=== PATIENT | female | born 1985 | race Caucasian/White ===

== ENCOUNTER 2021-08-10 04:18 | Emergency (ER) | payer OTHER ==
[2021-08-10] MEDS ORDERED: Lorazepam 2 MG/ML VIAL ONE (05:02)
[2021-08-10] MEDS ORDERED: Fentanyl 100 MCG/2 ML VIAL ONE ×2 (05:03→08:57)
[2021-08-10 05:30] LABS: #Basophils 0.1 10x3/uL (0.0-0.2); #Eosinphils 0.2 10x3/uL (0.0-0.5); #Monocytes 0.4 10x3/uL (0.0-1.1); %Basophils 0.8 % (0.0-2.0); %Eosinophils 2.5 % (0.0-6.0); %Lymphocytes 38.1 % (18.0-47.0); %Monocytes 7.4 % (0.0-10.0); Hemoglobin 11.6 g/dL (12.0-15.5); Mean Corpuscular Hemoglobin 30.7 pg (27.0-33.0); Mean Corpuscular Volume 92.9 fl (81.6-98.3); Platelet Count 209 10x3/uL (150-450); RBC Distribution Width 13.1 % (11.5-14.5); Red Blood Cell (RBC) Count 3.78 10x6/uL (3.90-5.03)
[2021-08-10 05:35] LABS: BHCG - Serum Negative (NEGATIVE); Pregs Control Background? CLEAR/WHITE (CLR/WHITE); Pregs Control Bar Appear? YES (CONTROL BAR)
[2021-08-10 05:46] LABS: ALT (SGPT) 15 U/L (8-55); AST (SGOT) 19 U/L (5-34); Alkaline Phosphatase 39 U/L (40-110); Anion Gap 11 mmol/L (10-20); BUN (Urea Nitrogen) 14 mg/dL (7.0-18.7); Bilirubin, Total 0.2 mg/dL (0.2-1.2); Calc. Creatinine Clearance 0 mL/min (70-130); Calcium 8.6 mg/dL (7.8-10.44); Carbon Dioxide 26 mmol/L (22-29); Chloride 107 mmol/L (98-107); Globulin 2.4 g/dL (2.4-3.5); Glucose 95 mg/dL (70-105); Lipase 30 U/L (8-78); Potassium 3.8 mmol/L (3.5-5.1); Protein, Total 6.4 g/dL (6.0-8.3); Sodium 140 mmol/L (136-145)
[2021-08-10 06:16] LABS: Bilirubin Neg (Negative); Blood, Urine Negative (Negative); Clarity Slightly Cloudy (Clear); Glucose, Urine (Dipstick) Normal (Negative); Ketone, Urine Negative (Negative); Leukocyte Negative (Negative); Nitrite Negative (Negative); Protein, Urine (Dipstick) Negative (Neg-Trace); Urobilinogen Normal mg/dL (Less than 2)
[2021-08-10] MEDS ORDERED: Morphine 4 MG/ML VIAL ONE (06:24)
[2021-08-10] MEDS ORDERED: Promethazine HCl 25 MG/ML VIAL ONE (06:24)
== END 2021-08-10 10:47 | disposition home or self-care (01) ==
LOC: CSHERS 04:18
DX: R10.31 Right lower quadrant pain (principal); K21.9 Gastro-esophageal reflux disease without esophagitis; J45.909 Unspecified asthma, uncomplicated; D50.9 Iron deficiency anemia, unspecified; Z87.891 Personal history of nicotine dependence
CPT/HCPCS: 74177; 76856; 80053; 81003; 83690; 84703; 85025; 96365; 96374; 96375; J2060; J2270; J2550; J3010

== ENCOUNTER 2022-03-28 15:14 | Emergency (ER) | payer OTHER ==
[2022-03-28] MEDS ORDERED: Morphine 4 MG/ML VIAL ONE (15:55)
[2022-03-28 16:04] LABS: #Monocytes 0.4 10x3/uL (0.0-1.1); #Neutrophils 4.3 10x3/uL (1.5-8.4); %Basophils 0.6 % (0.0-2.0); %Eosinophils 0.5 % (0.0-6.0); %Lymphocytes 25.3 % (18.0-47.0); %Monocytes 6.3 % (0.0-10.0); Hemoglobin 12.7 g/dL (12.0-15.5); Mean Corpuscular HGB CONC 34.1 g/dL (32.0-36.0); Mean Corpuscular Hemoglobin 31.3 pg (27.0-33.0); Mean Corpuscular Volume 91.6 fl (81.6-98.3); Mean Platelet Volume 11.1 fl (7.4-10.4); Platelet Count 208 10x3/uL (150-450); RBC Distribution Width 13.2 % (11.5-14.5); Red Blood Cell (RBC) Count 4.06 10x6/uL (3.90-5.03); White Blood Cell (WBC) Count 6.4 10x3/uL (3.5-10.5)
[2022-03-28 16:08] LABS: Bilirubin Neg (Negative); Blood, Urine Negative (Negative); Clarity Clear (Clear); Glucose, Urine (Dipstick) Normal (Negative); Ketone, Urine 5 mg/dL (Negative); Leukocyte Negative (Negative); Nitrite Negative (Negative); Protein, Urine (Dipstick) 15 mg/dl (Neg-Trace)
[2022-03-28 16:12] LABS: BHCG - Serum Negative (NEGATIVE); Pregs Control Background? CLEAR/WHITE (CLR/WHITE); Pregs Control Bar Appear? YES (CONTROL BAR)
[2022-03-28 16:19] LABS: ALT (SGPT) 18 U/L (8-55); AST (SGOT) 18 U/L (5-34); Albumin 4.3 g/dL (3.5-5.0); Alkaline Phosphatase 31 U/L (40-110); Anion Gap 12 mmol/L (10-20); BUN (Urea Nitrogen) 15 mg/dL (7.0-18.7); Bilirubin, Total 0.6 mg/dL (0.2-1.2); Calc. Creatinine Clearance 0 mL/min (70-130); Calcium 9.1 mg/dL (7.8-10.44); Carbon Dioxide 21 mmol/L (22-29); Chloride 108 mmol/L (98-107); Estimated GFR 115; Globulin 2.6 g/dL (2.4-3.5); Glucose 148 mg/dL (70-105); Lipase 23 U/L (8-78); Potassium 3.8 mmol/L (3.5-5.1); Protein, Total 6.9 g/dL (6.0-8.3); Sodium 137 mmol/L (136-145)
[2022-03-28] MEDS ORDERED: Promethazine HCl 25 MG/ML VIAL ONE (16:37)
== END 2022-03-28 19:29 | disposition home or self-care (01) ==
LOC: CSHERS 15:14
DX: R07.9 Chest pain, unspecified (principal); R10.9 Unspecified abdominal pain; K21.9 Gastro-esophageal reflux disease without esophagitis; D50.9 Iron deficiency anemia, unspecified; F17.290 Nicotine dependence, other tobacco product, uncomplicated; Z79.899 Other long term (current) drug therapy
CPT/HCPCS: 71045; 74177; 80053; 81003; 83690; 84484; 84703; 85025; 85379; 93005; 96361; 96365; 96375; J2270; J2550; U0003; U0005

== ENCOUNTER 2023-06-18 12:42 | Emergency (ER) | payer SELFPAY ==
[2023-06-18 13:25] LABS: Bilirubin Neg (Negative); Blood, Urine 10 (Negative); Clarity Clear (Clear); Glucose, Urine (Dipstick) Normal (Negative); Ketone, Urine Negative (Negative); Leukocyte Negative (Negative); Nitrite Negative (Negative); Protein, Urine (Dipstick) 15 mg/dl (Neg-Trace); Specific Gravity, Urine 1.015 (1.005-1.030); Urobilinogen Normal mg/dL (Less than 2); pH, Urine 6.5 (5.0-9.0)
[2023-06-18] MEDS ORDERED: Morphine 4 MG/ML VIAL ONE (13:50)
[2023-06-18 14:36] LABS: Bacteria/HPF 2+ HPF (None Seen); CAUTI Indications for Culture Dysuria,urgency,freq; RBC/HPF 0-3 HPF (0-3); WBC/HPF 0-3 HPF (0-3)
[2023-06-18 14:37] LABS: Epithelial Cast 0-3 LPF (None Seen)
[2023-06-18 14:38] LABS: Urine Culture Reflex No No
[2023-06-18 14:39] LABS: Pregnancy Test - Urine (BHCG) Negative (Negative); Pregu Control Background? CLEAR/WHITE (CLR/WHITE); Pregu Control Bar Appear? YES (CONTROL BAR); Specific Gravity 1.015 (1.002-1.036)
[2023-06-18 14:41] LABS: #Basophils 0.1 10x3/uL (0.0-0.2); #Eosinphils 0.1 10x3/uL (0.0-0.5); #Monocytes 0.6 10x3/uL (0.0-1.1); #Neutrophils 5.9 10x3/uL (1.5-8.4); %Basophils 0.6 % (0.0-2.0); %Lymphocytes 15.5 % (18.0-47.0); %Monocytes 7.7 % (0.0-10.0); %Neutrophils 74.8 % (40.0-75.0); Hematocrit 37.7 % (34.9-44.5); Hemoglobin 12.9 g/dL (12.0-15.5); Mean Corpuscular HGB CONC 34.2 g/dL (32.0-36.0); Mean Corpuscular Hemoglobin 31.2 pg (27.0-33.0); Mean Corpuscular Volume 91.3 fl (81.6-98.3); Mean Platelet Volume 10.4 fl (7.4-10.4); Platelet Count 249 10x3/uL (150-450); Red Blood Cell (RBC) Count 4.13 10x6/uL (3.90-5.03); White Blood Cell (WBC) Count 7.9 10x3/uL (3.5-10.5)
[2023-06-18 14:49] LABS: SARS-CoV-2 NAA Rapid Test Not Detected (NotDetected)
[2023-06-18 15:03] LABS: ALT (SGPT) 12 U/L (8-55); AST (SGOT) 17 U/L (5-34); Alkaline Phosphatase 36 U/L (40-110); Anion Gap 12 mmol/L (10-20); BUN (Urea Nitrogen) 13 mg/dL (7.0-18.7); Bilirubin, Total 0.3 mg/dL (0.2-1.2); Calc. Creatinine Clearance 0 mL/min (70-130); Calcium 8.9 mg/dL (7.8-10.44); Carbon Dioxide 25 mmol/L (22-29); Chloride 103 mmol/L (98-107); Estimated GFR 107; Globulin 2.7 g/dL (2.4-3.5); Glucose 73 mg/dL (70-105); Magnesium 1.9 mg/dL (1.6-2.6); Potassium 4.2 mmol/L (3.5-5.1); Protein, Total 6.7 g/dL (6.0-8.3); Sodium 136 mmol/L (136-145)
== END 2023-06-18 16:14 | disposition home or self-care (01) ==
LOC: CSHERS 12:42
DX: M32.9 Systemic lupus erythematosus, unspecified (principal); K21.9 Gastro-esophageal reflux disease without esophagitis; J45.909 Unspecified asthma, uncomplicated; F17.290 Nicotine dependence, other tobacco product, uncomplicated; Z20.822 Contact with and (suspected) exposure to COVID-19
CPT/HCPCS: 72131; 80053; 81001; 81025; 83735; 85025; 96374; J2270

== ENCOUNTER 2023-08-05 21:45 | Emergency (ER) | payer SELFPAY ==
[2023-08-05] MEDS ORDERED: methylPREDNISolone Sod Succ/PF 125 MG/2 ML VIAL ONE (22:52)
[2023-08-05] MEDS ORDERED: diphenhydrAMINE 50 MG/ML VIAL ONE (22:52)
[2023-08-05 23:17] LABS: #Basophils 0.1 10x3/uL (0.0-0.2); #Eosinphils 0.1 10x3/uL (0.0-0.5); #Monocytes 0.5 10x3/uL (0.0-1.1); #Neutrophils 4.5 10x3/uL (1.5-8.4); %Basophils 0.7 % (0.0-2.0); %Eosinophils 1.3 % (0.0-6.0); %Lymphocytes 36.6 % (18.0-47.0); %Monocytes 5.6 % (0.0-10.0); %Neutrophils 55.6 % (40.0-75.0); Hematocrit 36.5 % (34.9-44.5); Hemoglobin 12.5 g/dL (12.0-15.5); Mean Corpuscular HGB CONC 34.2 g/dL (32.0-36.0); Mean Corpuscular Hemoglobin 30.8 pg (27.0-33.0); Mean Corpuscular Volume 89.9 fl (81.6-98.3); Mean Platelet Volume 10.2 fl (7.4-10.4); Platelet Count 261 10x3/uL (150-450); RBC Distribution Width 12.8 % (11.5-14.5); Red Blood Cell (RBC) Count 4.06 10x6/uL (3.90-5.03); White Blood Cell (WBC) Count 8.2 10x3/uL (3.5-10.5)
[2023-08-05 23:28] LABS: BHCG - Serum Negative (NEGATIVE); Pregs Control Background? CLEAR/WHITE (CLR/WHITE); Pregs Control Bar Appear? YES (CONTROL BAR)
[2023-08-05] MEDS ORDERED: Metoclopramide HCl 10 MG/2 ML VIAL ONE (23:33)
[2023-08-05 23:35] LABS: ALT (SGPT) 12 U/L (8-55); AST (SGOT) 18 U/L (5-34); Albumin 3.8 g/dL (3.5-5.0); Alkaline Phosphatase 38 U/L (40-110); Anion Gap 13 mmol/L (10-20); BUN (Urea Nitrogen) 18 mg/dL (7.0-18.7); Bilirubin, Total 0.2 mg/dL (0.2-1.2); Calc. Creatinine Clearance 0 mL/min (70-130); Calcium 8.4 mg/dL (7.8-10.44); Carbon Dioxide 21 mmol/L (22-29); Chloride 104 mmol/L (98-107); Estimated GFR 115; Glucose 75 mg/dL (70-105); Protein, Total 6.8 g/dL (6.0-8.3); Sodium 134 mmol/L (136-145)
[2023-08-05] MEDS ORDERED: Morphine 2 MG/ML VIAL ONE (23:39)
[2023-08-05 23:46] LABS: Bilirubin Neg (Negative); Blood, Urine Negative (Negative); Clarity Clear (Clear); Glucose, Urine (Dipstick) Normal (Negative); Ketone, Urine 5 mg/dL (Negative); Leukocyte Negative (Negative); Nitrite Negative (Negative); Protein, Urine (Dipstick) 30 mg/dl (Neg-Trace); Specific Gravity, Urine 1.025 (1.005-1.030)
[2023-08-05 23:56] LABS: Amphetamine Not Detected (NotDetected); Barbiturates Screen Not Detected (NotDetected); Benzodiazepine Screen Detected (NotDetected); Cocaine Metabolite Screen Not Detected (NotDetected); Methadone Not Detected (NotDetected); Methamphetamine Not Detected (NotDetected); Opiate Screen Detected (NotDetected); Oxycodone Screen Not Detected (NotDetected); Phencyclidine (PCP) Not Detected (NotDetected); THC/Cannabinoid Screen Not Detected (NotDetected); Tricyclic Screen Not Detected (NotDetected)
[2023-08-06 00:03] LABS: Bacteria/HPF 2+ HPF (None Seen); CAUTI Indications for Culture Fever or rigors; Mucous/LPF 1+ LPF (<2+); RBC/HPF 0-3 HPF (0-3); WBC/HPF 0-3 HPF (0-3)
[2023-08-06 00:04] LABS: Urine Culture Reflex No No
== END 2023-08-06 01:30 | disposition home or self-care (01) ==
LOC: CSHERS 21:45
DX: G43.909 Migraine, unspecified, not intractable, without status migrainosus (principal); K21.9 Gastro-esophageal reflux disease without esophagitis; F17.290 Nicotine dependence, other tobacco product, uncomplicated; Z79.899 Other long term (current) drug therapy
CPT/HCPCS: 70450; 80053; 80306; 81001; 84703; 85025; 93005; 93010; 96374; 96375; J1200; J2272; J2765; J2930